=== PATIENT | female | born 1970 | race Caucasian/White ===

== ENCOUNTER 2017-12-10 13:40 | Outpatient (RCR) | payer OTHER, SELFPAY ==
[2017-12-10 14:14] VITALS: BP 155/90; PULSE 106; RESP 16; TEMP 36.9; BMI 25.1
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
== END 2018-01-06 23:59 ==
LOC: WC 13:40
PROVIDERS: Family Provider Family Medicine; PCP Family Medicine; Visit Provider Podiatrist Foot & Ankle Surgery
DX: T25.221A Burn of second degree of right foot, initial encounter (principal); X11.8XXA Contact with other hot tap-water, initial encounter
CPT/HCPCS: 99203; G0463

== ENCOUNTER → 2018-05-02 12:11 | Outpatient (CLI) | payer OTHER, SELFPAY | PROVIDERS: Visit Provider Family Medicine | DX: R35.1 Nocturia (principal) | CPT/HCPCS: 87086; 87088 ==

== ENCOUNTER 2021-04-06 11:00 | Outpatient (RCR) | payer OTHER, SELFPAY ==
--- NOTE | 2021-03-09 12:10 | HP.PTEVAL_ITS ---
Patient's Visit Information JORGE ALBERTO JOHNSON is a 50 year old F referred to Physical Therapy by JIMBO Tapia with a diagnosis of R shoulder calcific tendonitis. Date of Evaluation: 03/09/21 Physical Therapist: Andrea Skinner, PT, ATC - Visit Plan Frequency: 2-3x /Week Duration: 4-6 Weeks Plan: R shoulder PROM/mobs, stretching and strengthening, scap stab, UBE, and HEP - Subjective Pt reports she has had R shoulder pain for the past 2 weeks. Pt notes she had an MRI which revealed a minor tear of the rotator cuff, calcific tendinitis, and bursitis. Pt notes her pain has improved over the past couple days, but she has difficulty with lifting her arm over her head. Pt reports she has a shooting pain that extends to her R elbow. Pt notes she had tingling that would radiate to her hand at first, but that has gone away. Pt notes she is R hand dominant. Pt reports she works for [employer]. Pt reports she has not had any significant Hx of R shoulder pain in the past. Pt reports she is limited with house chores, putting dishes away, and washing her hair secondary to pain and limited ROM. 0/10 pain at rest, 7/10 pain at worst (usually at night when she is trying to sleep.) - Pain R shoulder Pain Intensity (Out of 10): 0 Pain Intensity Range: 7 - Objective Neuro: B UE sensation is WNL to light touch. B bicepital reflex= 2/3. Palpation: Pt is very sore throughout the distribution of the LHB tendon and the supraspinatus muscl. No obvious deformity. ROM: L shoulder flex= 160, abd= 165, ER= 45, IR WNL; R shoulder flex= 60, abd= 45, ER= 10, IR moderately. MMT: R shoulder is grossly 3-/5 and painful. L shoulder is 5/5 throughout. SPecial tests: Not done today as MRI already revealed torn rotator cuff, calcific tendonitis, and bursitis - Goals Goal 1:: Decrease R shoulder pain x 50% to aid with sleep Goal Time Frame: 4-6 Weeks Goal 2:: Increase R shoulder strength x 1 grade to aid with IADL's Goal Time Frame: 4-6 Weeks Goal 3:: Increase R shoulder flex and abd ROM x 30 degrees to aid with overhead lifting Goal Time Frame: 4-6 Weeks Goal 4:: I with HEP Goal Time Frame: 4-6 Weeks - Rehabilitation Potential Physical Therapy Diagnosis: R shoulder pain, weakness, and limited ROM secondary to R shoulder rotator cuff syndrome Rehabilitation Potential: Good - Anticipated Interventions Patient/Client Instruction: Educate patient on: Condition, Plan of Care For the Purpose of:: To improve self management Therapeutic Exercise to Include: Strength training, Endurance training, Flexibilty training, Passive ROM, Active ROM, Scapular Strength/Stabilization For the Purpose of:: To decrease pain, To increase ROM, To improve muscle performance and motor function Cryotherapy (ice pack, ice massage): Yes For the Purpose of:: To decrease pain Thank you for the opportunity to evaluate your patient. For Medicare and Medicare HMO plans, please review the plan of care and approve it. It will need to be FAXED BACK to us at [phone] for Medicare purposes. For Medicare only, by signing this I certify the plan of care. Please let me know if there are questions or concerns regarding this plan of care. Physician Signature: Date:
--- NOTE | 2021-04-06 11:29 | HP.PTDCSUM ---
It has been my pleasure to treat JORGE ALBERTO JOHNSON referred by JIMBO Tapia, with the diagnosis of R shoulder calcific tendonitis for a total of 10 visit(s). Discharge Date: Please see the following information for a summary of their discharge status. Subjective: Pt reports no pain this date. R shoulder Pain Intensity (Out of 10): 0 % Improvement: 80 Objective/Function: R shoulder pain is 0/10. R shoulder ROM: flex= 130, abd= 115, ER= 70. R shoulder MMT: 4-4+/5 throughout. Pt is I with HEP. Rx goals achieved Goal 1:: Decrease R shoulder pain x 50% to aid with sleep Goal Progress: Goal Met Goal 2:: Increase R shoulder strength x 1 grade to aid with IADL's Goal Progress: Goal Met Goal 3:: Increase R shoulder flex and abd ROM x 30 degrees to aid with overhead lifting Goal Progress: Goal Met Goal 4:: I with HEP Goal Progress: Goal Met Plan: Discharge If there are questions or concerns regarding this patient's physical therapy, please feel free to call me at [phone]. Thank you for the referral of this patient. Sincerely, Andrea Skinner, PT, ATC Balance/Gait/Functional tests - Balance/Special Test Scores Quick DASH Score: [phone]
== END 2021-04-06 19:00 | disposition home or self-care (01) ==
LOC: PT 11:00
PROVIDERS: PCP Family Medicine; Referring Provider Physician Assistant Surgical; Visit Provider Physician Assistant Surgical
DX: M75.01 Adhesive capsulitis of right shoulder (principal)
CPT/HCPCS: 97110; 97161; 97164

== ENCOUNTER → 2022-07-11 | Outpatient (CLI) | payer OTHER, SELFPAY ==
--- NOTE | 2022-07-11 15:07 | NEURO ---
NCS and/or EMG Patient Report Ordering Doctor: Gaurang Dawson DATE OF SERVICE: 07/11/22 Keyla presents for electrodiagnostic testing of the upper limbs. She reports numbness and tingling in both hands, worse on the right side. She denies neck pain. Electrodiagnostic findings: Right median motor nerve demonstrates prolonged distal latency with normal amplitude and conduction velocity. Left median motor nerve demonstrates prolonged distal latency with normal amplitude and borderline reduced conduction velocity. Ulnar motor responses are within normal limits. Prolonged median sensory latency at the wrist bilaterally. Normal ulnar and radial sensory responses. On needle EMG, all muscles tested in the upper limbs, as well as the cervical paraspinals, showed no evidence of denervation with normal motor unit action potentials. Electrodiagnostic impression: This is an abnormal study in the upper limbs. 1. Electrodiagnostic findings suggestive of bilateral median mononeuropathy. This is consistent with a moderate bilateral carpal tunnel syndrome. 2. No electrodiagnostic evidence is noted for cervical radiculopathy.
== END | disposition home or self-care (01) ==
LOC: PSN 10:46
PROVIDERS: PCP Family Medicine; Referring Provider Orthopaedic Surgery; Visit Provider Orthopaedic Surgery
DX: G56.03 Carpal tunnel syndrome, bilateral upper limbs (principal)
CPT/HCPCS: 95886; 95913